=== PATIENT | male | born 2000 | race Caucasian/White ===

== ENCOUNTER 2019-01-06 17:09 | Inpatient (IN) | payer OTHER ==
[~2019-01-06 17:09] MED LIST: Dexamethasone 20 MG/5 ML VIAL ONE; Ketorolac Tromethamine 30 MG/ML VIAL ONE; Lidocaine 1% PF 5 ML VIAL ONE; Ondansetron PF 4 MG/2 ML Vial ONE; PROPOFOL 200 MG/20 ML VIAL ONE; Succinylcholine Chloride 20 MG/ML 10 ml SYRINGE FS ONE
[2019-01-06] MEDS ORDERED: Fentanyl 100 MCG/2 ML VIAL ONE ×5 (17:14→23:20)
[2019-01-06] MEDS ORDERED: CEFAZOLIN 1 GM VIAL ONE ×2 (17:14→18:47)
[2019-01-06] MEDS ORDERED: Adacel (T-DAP) 0.5 ML SYRINGE ONE (17:28)
[2019-01-06 17:32] LABS: #Eosinphils 0.1 thou/uL (0.0-0.7); #Lymphocytes 1.9 thou/uL (1.20-3.40); #Monocytes 0.5 thou/uL (0.11-0.59); #Neutrophils 2.7 thou/uL (1.40-6.50); %Basophils 0.8 % (0.0-1.0); %Eosinophils 1.7 % (0.0-10.0); %Lymphocytes 37.1 % (28.0-48.0); %Monocytes 9.4 % (0.0-4.0); Hemoglobin 14.1 g/dL (14.0-18.0); Mean Corpuscular Hemoglobin 28.4 pg (25.0-35.0); Mean Corpuscular Volume 88.7 fL (78.0-98.0); Mean Platelet Volume 8.1 fL (7.4-10.4); Platelet Count 221 thou/uL (130-400); RBC Distribution Width 12.3 % (11.5-14.5); Red Blood Cell (RBC) Count 4.96 mill/uL (4.00-5.20); White Blood Cell (WBC) Count 5.2 thou/uL (4.8-10.8)
[2019-01-06] MEDS ORDERED: Lidocaine 1% w/Epinephrine 1:100K 20 ML VIAL ONE (17:52)
[2019-01-06 17:58] LABS: ALT (SGPT) 15 U/L (8-55); AST (SGOT) 19 U/L (10-45); Albumin 4.2 g/dL (3.5-5.0); Alkaline Phosphatase 101 U/L (Less than 750); Anion Gap 14 mmol/L (10-20); BUN (Urea Nitrogen) 19 mg/dL (8.4-21.0); Bilirubin, Total 0.4 mg/dL (0.2-1.2); Calc. Creatinine Clearance 0 mL/min (70-130); Calcium 9.1 mg/dL (7.8-10.44); Carbon Dioxide 22 mmol/L (22-29); Chloride 108 mmol/L (98-107); Estimated GFR-MDRD 85; Globulin 2.7 g/dL (2.4-3.5); Glucose 111 mg/dL (70-105); Potassium 3.8 mmol/L (3.5-5.1); Protein, Total 6.9 g/dL (6.0-8.3); Sodium 140 mmol/L (136-145)
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
[2019-01-06] MEDS ORDERED: Neomycin-Polymyxin 1 ML AMP ONE (19:05)
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
[2019-01-06] MEDS ORDERED: Midazolam HCl 2 mg/2 ml Vial ONE (19:30)
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
[2019-01-06] MEDS ORDERED: HYDROmorphone 2 MG/ML VIAL ONE (20:56)
[2019-01-06] MEDS ORDERED: Albumin 5% 500 ML ONE (22:14)
[2019-01-06] MEDS ORDERED: Albumin 25% 0 ML ONE (22:14)
[2019-01-06] MEDS ORDERED: Promethazine HCl 25 MG/ML VIAL IM PRN (22:49)
[2019-01-06] MEDS ORDERED: HYDROmorphone 2 MG/ML VIAL SLOW IVP PRN (22:49)
[2019-01-06] MEDS ORDERED: Meperidine HCl/PF 25 MG/ML VIAL SLOW IVP PRN (22:49)
[2019-01-06] MEDS ORDERED: Promethazine HCl 25 MG/ML VIAL SLOW IVP PRN (22:49)
[2019-01-07] MEDS ORDERED: Morphine 4 MG/ML VIAL SLOW IVP PRN (00:12)
[2019-01-07] MEDS ORDERED: Morphine 2 MG/ML SYRINGE SLOW IVP PRN (00:12)
[2019-01-07] MEDS ORDERED: Promethazine HCl 25 MG/ML VIAL IM PRN ×2 (00:12)
[2019-01-07] MEDS ORDERED: Ondansetron PF 4 MG/2 ML Vial IVP PRN (00:12)
[2019-01-07] MEDS ORDERED: Dextrose 5% in Water 1,000 ML IV PRN (00:12)
[2019-01-07] MEDS ORDERED: Dextrose 50% Abboject 50 ML SYRINGE SLOW IVP PRN (00:12)
[2019-01-07] MEDS ORDERED: Ondansetron ODT 4 MG TAB PO PRN (00:12)
[2019-01-07] MEDS: Sodium Chloride 0.9% 1,000 ML IV SCH ×2 (00:30→08:15)
[2019-01-07] MEDS ORDERED: Famotidine 20 MG TAB PO SCH (00:30)
[2019-01-07 00:32] LABS: Hemoglobin 10.5 g/dL (14.0-18.0)
[2019-01-07] MEDS: cefTRIAXone\\ROCEPHIN 2 GM in Sodium Chloride 0.9% 100 ML IVPB SCH (00:54)
[2019-01-07 01:59] VITALS: BMI 20.7
[2019-01-07 06:31] LABS: %Basophils 0.4 % (0.0-1.0); %Eosinophils 0.2 % (0.0-10.0); %Lymphocytes 9.6 % (28.0-48.0); %Monocytes 10.4 % (0.0-4.0); %Neutrophils 79.4 % (31.0-61.0); Hemoglobin 9.1 g/dL (14.0-18.0); Mean Corpuscular HGB CONC 32.5 g/dL (32.0-36.0); Mean Corpuscular Volume 89.2 fL (78.0-98.0); Mean Platelet Volume 7.8 fL (7.4-10.4); Platelet Count 182 thou/uL (130-400); Red Blood Cell (RBC) Count 3.15 mill/uL (4.00-5.20)
[2019-01-07 06:59] LABS: Anion Gap 10 mmol/L (10-20); BUN (Urea Nitrogen) 14 mg/dL (8.4-21.0); Calc. Creatinine Clearance 127 mL/min (70-130); Calcium 7.8 mg/dL (7.8-10.44); Carbon Dioxide 26 mmol/L (22-29); Chloride 106 mmol/L (98-107); Estimated GFR-MDRD Greater than 90; Glucose 128 mg/dL (70-105); Potassium 4.1 mmol/L (3.5-5.1); Sodium 138 mmol/L (136-145)
[2019-01-07] MEDS ORDERED: CEFAZOLIN 2 GM in Premix Bag 1 BAG IVPB SCH (07:45)
--- NOTE | 2019-01-07 09:28 | RAD ---
SIX FLUOROSCOPIC IMAGES FROM THE OR LEFT ANKLE: Comparison: Prior left ankle radiograph, 01-06-19. FINDINGS: There is improved alignment of the subtalar articulation with near anatomic alignment of the comminut ed calcaneal fracture. There is a lateral plate and screw fixation present. There is a metallic pin t raversing the anterior calcaneal fossa extending into the posterior tuberosity. There are percutaneou s pins transfixing the talonavicular and navicular cuneiform articulations. IMPRESSION: Interval subtalar reduction and open reduction internal fixation of the comminuted fracture involving the calcaneus. There is improved alignment seen at the midfoot with percutaneous pinning. Total fluo roscopic time was 19.9 seconds. Total exposure was 0.74 mGy*cm^2. POS: BH
[2019-01-07] MEDS ORDERED: traMADol HCl 50 MG TAB PO PRN (10:21)
[2019-01-07] MEDS: Acetaminophen 500 MG TAB PO SCH ×3 (10:45→22:52)
[2019-01-07] MEDS: traMADol HCl 50 MG TAB PO SCH ×3 (10:45→22:53)
[2019-01-07] MEDS: Ibuprofen 800 MG TAB PO SCH ×2 (12:54→20:48)
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
[2019-01-07] MEDS: Famotidine 20 MG TAB PO SCH (20:48)
[2019-01-08] MEDS: cefTRIAXone\\ROCEPHIN 2 GM in Sodium Chloride 0.9% 100 ML IVPB SCH (01:00)
[2019-01-08] MEDS: Ibuprofen 800 MG TAB PO SCH ×3 (04:42→20:56)
[2019-01-08] MEDS: Acetaminophen 500 MG TAB PO SCH ×4 (04:43→23:16)
[2019-01-08] MEDS: traMADol HCl 50 MG TAB PO SCH ×4 (04:43→23:16)
[2019-01-08 07:04] LABS: #Eosinphils 0.1 thou/uL (0.0-0.7); #Monocytes 0.7 thou/uL (0.11-0.59); #Neutrophils 2.3 thou/uL (1.40-6.50); %Basophils 0.4 % (0.0-1.0); %Eosinophils 1.7 % (0.0-10.0); %Monocytes 13.2 % (0.0-4.0); %Neutrophils 44.7 % (31.0-61.0); Hemoglobin 8.4 g/dL (14.0-18.0); Mean Corpuscular HGB CONC 32.5 g/dL (32.0-36.0); Mean Corpuscular Hemoglobin 29.9 pg (25.0-35.0); Mean Corpuscular Volume 92.1 fL (78.0-98.0); Mean Platelet Volume 8.1 fL (7.4-10.4); Platelet Count 141 thou/uL (130-400); RBC Distribution Width 12.2 % (11.5-14.5); White Blood Cell (WBC) Count 5.1 thou/uL (4.8-10.8)
[2019-01-08] MEDS: Famotidine 20 MG TAB PO SCH ×2 (08:08→20:56)
[2019-01-08] MEDS ORDERED: Fentanyl 100 MCG/2 ML VIAL ONE ×2 (11:35→13:43)
[2019-01-08] MEDS ORDERED: Neomycin-Polymyxin 1 ML AMP ONE (11:52)
[2019-01-08] MEDS ORDERED: Meperidine HCl/PF 25 MG/ML VIAL ONE (13:38)
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
[2019-01-09] MEDS ORDERED: cefTRIAXone\\ROCEPHIN 2 GM in Sodium Chloride 0.9% 100 ML IVPB SCH (01:00)
[2019-01-09] MEDS: Ibuprofen 800 MG TAB PO SCH ×2 (04:08→11:26)
[2019-01-09] MEDS: traMADol HCl 50 MG TAB PO SCH ×3 (04:08→17:24)
[2019-01-09] MEDS: Acetaminophen 500 MG TAB PO SCH ×3 (04:08→17:25)
[2019-01-09] MEDS: Famotidine 20 MG TAB PO SCH (08:57)
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
[2019-01-09 16:42] VITALS: BP 115/71; TEMP 98.4
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
== END 2019-01-09 18:00 | disposition home or self-care (01) | DRG 504 ==
LOC: ERS 17:09 → SURG B 19:13 → SDC/OP 19:18 → SURG B 23:44
PROVIDERS: ADMIT Surgery; ATTEND Surgery
PROC: 0HQLXZZ Repair Left Lower Leg Skin, External Approach (ICD-10-PCS; principal; 2019-01-06)
PROC: 0QSM04Z Reposition Left Tarsal with Internal Fixation Device, Open Approach (ICD-10-PCS; 2019-01-06)
DX: S92.252B Displaced fracture of navicular [scaphoid] of left foot, initial encounter for open fracture (principal); S85.182A Other specified injury of posterior tibial artery, left leg, initial encounter; S92.002A Unspecified fracture of left calcaneus, initial encounter for closed fracture; S91.312A Laceration without foreign body, left foot, initial encounter; S91.012A Laceration without foreign body, left ankle, initial encounter; S81.012A Laceration without foreign body, left knee, initial encounter; Y92.9 Unspecified place or not applicable; V23.4XXA Motorcycle driver injured in collision with car, pick-up truck or van in traffic accident, initial encounter; Z90.49 Acquired absence of other specified parts of digestive tract
CPT/HCPCS: 12002; 36415; 76000; 80048; 80053; 85014; 85018; 85025; 90471; 90715; 93005; 96365; 96366; 96375; 96376; C1713; G0390; J0131; J0690; J0696; J1100; J1170; J1885; J2001; J2175; J2250; J2270; J2405; J2704; J3010; J3490; P9045; P9047

== ENCOUNTER 2019-01-13 15:31 | Outpatient (CLI) | payer OTHER | END 2019-01-13 15:32 | disposition home or self-care (01) | LOC: WCC 15:31 | PROVIDERS: ATTEND Family Medicine | DX: S97.82XD Crushing injury of left foot, subsequent encounter (principal) | CPT/HCPCS: 97606 ==

== ENCOUNTER 2019-01-16 14:20 | Outpatient (CLI) | payer OTHER ==
[2019-01-16] MEDS ORDERED: Sodium Chloride 0.9% 15 ML NEB ONE (15:00)
== END 2019-01-16 14:21 | disposition home or self-care (01) ==
LOC: WCC 14:20
PROVIDERS: ATTEND Family Medicine
DX: S97.82XD Crushing injury of left foot, subsequent encounter (principal)
CPT/HCPCS: 97605; A4218

== ENCOUNTER 2019-01-20 15:28 | Outpatient (CLI) | payer OTHER ==
[2019-01-20] MEDS ORDERED: Sodium Chloride 0.9% 15 ML NEB ONE (18:00)
== END 2019-01-20 15:29 | disposition home or self-care (01) ==
LOC: WCC 15:28
PROVIDERS: ATTEND Family Medicine
DX: S97.82XD Crushing injury of left foot, subsequent encounter (principal)
CPT/HCPCS: 97605; A4218

== ENCOUNTER 2019-01-23 15:50 | Outpatient (CLI) | payer OTHER ==
[~2019-01-23 15:50] MED LIST changes: -Dexamethasone 20 MG/5 ML VIAL ONE; -Ketorolac Tromethamine 30 MG/ML VIAL ONE; -Lidocaine 1% PF 5 ML VIAL ONE; -Ondansetron PF 4 MG/2 ML Vial ONE; -PROPOFOL 200 MG/20 ML VIAL ONE; +Sodium Chloride 0.9% 15 ML NEB ONE; -Succinylcholine Chloride 20 MG/ML 10 ml SYRINGE FS ONE
== END 2019-01-23 15:51 | disposition home or self-care (01) ==
LOC: WCC 15:50
PROVIDERS: ATTEND Family Medicine
DX: S97.82XD Crushing injury of left foot, subsequent encounter (principal)
CPT/HCPCS: 97605; A4218

== ENCOUNTER 2019-01-27 15:29 | Outpatient (CLI) | payer OTHER | END 2019-01-27 15:30 | disposition home or self-care (01) | LOC: WCC 15:29 | PROVIDERS: ATTEND Family Medicine | DX: S97.82XD Crushing injury of left foot, subsequent encounter (principal) | CPT/HCPCS: 97605; A4218 ==

== ENCOUNTER 2019-02-14 11:01 | Day surgery (SDC) | payer OTHER ==
[2019-02-13 12:18] VITALS: BMI 19.5
[2019-02-14] MEDS ORDERED: EPINEPHrine 1 MG/ML AMP ONE (12:57)
[2019-02-14] MEDS ORDERED: Bupivacaine/Epinephrine 0.25% 30 ML VIAL ONE (12:57)
[2019-02-14] MEDS ORDERED: Fentanyl 100 MCG/2 ML VIAL ONE ×2 (13:22)
--- NOTE | 2019-02-14 14:58 | OP ---
DATE OF PROCEDURE: 02/14/2019 PREOPERATIVE DIAGNOSIS: Open wound, left foot. POSTOPERATIVE DIAGNOSIS: Open wound, left foot. PROCEDURES PERFORMED: 1. Debridement of the left foot in preparation for skin grafting (12 cm2) (37356). 2. Split-thickness skin graft to left foot (12 cm2) ([id number]). 3. Placement of wound VAC (12 cm2) ([id number]). DESCRIPTION OF PROCEDURE: Following induction of adequate anesthesia, the patient was prepped and draped in usual sterile fashion in supine position. The wound was sharply debrided back to punctate bleeding and copiously irrigated. Split-thickness skin graft reconstruction was elected. A 08/1000 of an inch split-thickness skin graft was harvested from the ipsilateral thigh and meshed 1.5 to 1. It was secured to the recipient site on the left foot with interrupted 5-0 chromic sutures and secured in place with 5-0 chromic suture. A wound VAC was placed to secure the wound VAC as well as enhance survival. The patient tolerated the procedure well. Job ID: [id number]
== END 2019-02-14 17:45 | disposition home or self-care (01) ==
LOC: SDC 11:01
PROVIDERS: ATTEND Plastic Surgery
PROC: 0HRNX74 Replacement of Left Foot Skin with Autologous Tissue Substitute, Partial Thickness, External Approach (ICD-10-PCS; principal; 2019-02-14)
DX: S91.302A Unspecified open wound, left foot, initial encounter (principal); Z98.890 Other specified postprocedural states; V89.2XXA Person injured in unspecified motor-vehicle accident, traffic, initial encounter
CPT/HCPCS: J0171; J0690; J3010

== ENCOUNTER 2021-03-09 08:20 | Outpatient (CLI) | payer BC | END 2021-03-09 08:21 | disposition home or self-care (01) | LOC: SCSMRI 08:20 | PROVIDERS: ATTEND Orthopaedic Surgery | DX: M23.91 Unspecified internal derangement of right knee (principal); M21.961 Unspecified acquired deformity of right lower leg ==